=== PATIENT | female | born 1990 | race Asian ===

== ENCOUNTER 2020-09-24 07:30 | Inpatient (IN) | payer MEDICAID, OTHER ==
[2020-09-24] MEDS: Lactated Ringer's 1,000 ML IV SCH ×3 (08:10→18:06)
[2020-09-24] MEDS ORDERED: Ondansetron PF 4 MG/2 ML Vial IVP PRN ×2 (08:16→18:10)
[2020-09-24] MEDS ORDERED: Butorphanol Tartrate 1 MG/ML VIAL SLOW IVP PRN (08:16)
[2020-09-24] MEDS ORDERED: Ibuprofen 800 MG TAB PO PRN (08:16)
[2020-09-24] MEDS ORDERED: HYDROcodone/Acetaminophen 5/325 mg Tablet PO PRN ×2 (08:16)
[2020-09-24] MEDS ORDERED: hydrALAZINE 20 MG/ML VIAL SLOW IVP PRN (08:16)
[2020-09-24] MEDS ORDERED: Lidocaine 1% (PF) 30 ML VIAL SC PRN (08:16)
[2020-09-24] MEDS ORDERED: Promethazine HCl 25 MG/ML VIAL IM PRN ×2 (08:16→18:10)
[2020-09-24] MEDS ORDERED: Lactated Ringer's 1,000 ML IV SCH (08:16)
[2020-09-24] MEDS ORDERED: Penicillin G Potassium 5 MILL.UNITS VIAL ONE (08:46)
[2020-09-24 08:48] LABS: Hemoglobin 13.6 g/dL (12.0-16.0); Mean Corpuscular HGB CONC 33.1 g/dL (32.0-36.0); Mean Corpuscular Hemoglobin 31.2 pg (27.0-31.0); Mean Corpuscular Volume 94.2 fL (78.0-98.0); Mean Platelet Volume 7.6 fL (7.4-10.4); Platelet Count 248 thou/uL (130-400); RBC Distribution Width 12.4 % (11.5-14.5); Red Blood Cell (RBC) Count 4.36 mill/uL (4.20-5.40); White Blood Cell (WBC) Count 9.1 thou/uL (4.8-10.8)
[2020-09-24 08:51] VITALS: BMI 28.6
[2020-09-24] MEDS ORDERED: Penicillin G Potassium 5 MILL.UNITS in Sodium Chloride 0.9% 100 ML IVPB SCH (09:00)
[2020-09-24] MEDS ORDERED: NS w/ Oxytocin 30 units 500 ML IVPB PRN (09:04)
[2020-09-24 09:34] LABS: HBSAg Index 0.18 S/CO (0-0.99); Hep B Surf Ag Non-Reactive S/CO (NonReactive)
[2020-09-24 09:35] LABS: Syphilis Antibody Nonreactive (Nonreactive); Syphilis Antibody Index 0.04 S/CO (<1.00 Non-Reactive)
--- NOTE | 2020-09-24 11:50 | PDOC.LDHP ---
Labor and Delivery H&P Chief complaint: loss of fluid HPI: 30 y/o at 39 and 4/7 weeks with SROM. Clinic ultrasound on 09/06/20 showed weight of 6 pounds 10 oz. GBS positive on prior urine. Approximate 47 pound weight gain noted this . Cervix is relatively unfavorable today at 1cm, and is firm and rubbery. Due date: 09/27/20 Current complications: other (Excessive Weight Gain in ) Current medications: pre- vitamins Allergies/Adverse Reactions: Allergies Allergy/AdvReac Type Severity Reaction Status Date / Time No Known Allergies Allergy Verified 09/24/20 08:52 Social history: none - Physical Exam Vital signs reviewed and normal: yes General: NAD, breathing through contractions Heart: RRR Lungs: CTAB Abdomen: gravid Extremeties: no edema FHT: category 1 - Assessment L&D Assessment: term rupture in membranes - Plan Plan: admit to L&D, labor augmentation if indicated
[2020-09-24] MEDS ORDERED: Bupivacaine 0.25% HCL 30 ML VIAL ONE ×2 (12:18→23:31)
[2020-09-24] MEDS ORDERED: ePHEDrine 50 MG/ML VIAL ONE (12:18)
[2020-09-24] MEDS ORDERED: Lidocaine 2% PF 5 ML VIAL ONE (12:18)
[2020-09-24] MEDS: Penicillin G 2.5 MILL.units 2.5 MILL.UNITS in Premix Bag 1 BAG IVPB SCH ×3 (13:11→21:27)
[2020-09-24] MEDS ORDERED: Fentanyl 4 mcg/Bup 0.1% Cadd 100 ML ONE ×2 (14:52→21:25)
[2020-09-24] MEDS: ePHEDrine 50 MG/ML VIAL SLOW IVP PRN ×2 (16:26→17:24)
[2020-09-24] MEDS ORDERED: diphenhydrAMINE 50 MG/ML VIAL IVP PRN (18:10)
[2020-09-24] MEDS ORDERED: Naloxone HCl 0.4 mg/ml Vial IVP PRN ×2 (18:10)
[2020-09-24] MEDS ORDERED: Acetaminophen 325 MG TAB PO PRN (18:10)
[2020-09-24] MEDS ORDERED: Lactated Ringer's 500 ML IV PRN (18:10)
[2020-09-24] MEDS ORDERED: Communication Order-Pharmacy FS SCH (18:15)
[2020-09-24] MEDS ORDERED: Fentanyl 4 mcg/Bupivacaine 0.1% Cassette 100 ML EPIDURAL SCH (18:15)
[2020-09-24 18:22] LABS: SARS-CoV-2 PCR by NAA Not Detected (NotDetected)
[2020-09-24] MEDS ORDERED: Bicitra 30 ML UDCUP PO PRN (23:13)
[2020-09-24] MEDS ORDERED: Famotidine/PF 20 mg/2ml Vial SLOW IVP PRN (23:13)
[2020-09-24] MEDS ORDERED: Azithromycin 500 MG VIAL ONE ×2 (23:15)
--- NOTE | 2020-09-24 23:20 | PDOC.LDPN ---
Labor & Delivery Progress Note - Objective Dilation: 10 Effacement: 100% Station: 1+ -: Mother has pushed now for approximately 3 hours, and has been placed in every position possible to help rotate baby to a better OA position. At this point, I suspect persistent OP presentation. Per her nurseZora, minimal descent of the head is appreciated since the start of pushing. I recommended a c- section to the family, as the safest mode of delivery for the health of the fetus. I did offer the option of an attempted vacuum delivery, carefully going over the risks of attempted vacuum delivery. The patient and talked for about 10 minutes, and have chosen to proceed directly with . Anesthesia has been called and is now here at bedside.
[2020-09-24] MEDS ORDERED: CEFAZOLIN 2 GM in Premix Bag 1 BAG IVPB SCH (23:30)
[2020-09-24] MEDS ORDERED: Azithromycin 500 MG in Sodium Chloride 0.9% 250 ML 250 ML IVPB SCH (23:30)
[2020-09-24] MEDS ORDERED: Morphine PF 10 MG/10 ML VIAL ONE (23:30)
[2020-09-24] MEDS ORDERED: Oxytocin 10 UNITS/ML VIAL ONE (23:31)
[2020-09-24] MEDS ORDERED: Fentanyl 100 MCG/2 ML VIAL ONE (23:58)
[2020-09-25] MEDS ORDERED: Promethazine HCl 25 MG SUPP PR PRN (00:09)
[2020-09-25] MEDS ORDERED: L&D-Morphine 4 MG/ML VIAL SLOW IVP PRN (00:09)
[2020-09-25] MEDS ORDERED: Ondansetron HCl/PF 4 MG/2 ML Vial IVP PRN (00:09)
[2020-09-25] MEDS ORDERED: Ondansetron PF 4 MG/2 ML Vial IVP PRN ×2 (00:09→02:55)
[2020-09-25] MEDS ORDERED: Naloxone HCl 0.4 mg/ml Vial IVP PRN ×2 (00:09)
[2020-09-25] MEDS ORDERED: HYDROmorphone 2 MG/ML VIAL SLOW IVP PRN (00:09)
[2020-09-25] MEDS ORDERED: Naloxone HCl 0.4 mg/ml Vial IV PRN (00:09)
[2020-09-25] MEDS ORDERED: Meperidine HCl/PF 25 MG/ML VIAL SLOW IVP PRN (00:09)
[2020-09-25] MEDS ORDERED: Promethazine HCl 25 MG/ML VIAL IM PRN ×2 (00:09→02:55)
[2020-09-25] MEDS ORDERED: diphenhydrAMINE 50 MG/ML VIAL IVP PRN (00:09)
[2020-09-25] MEDS ORDERED: Ketorolac Tromethamine 30 MG/ML VIAL IVP SCH (00:15)
[2020-09-25] MEDS ORDERED: Communication Order-Pharmacy FS SCH (00:15)
[2020-09-25] MEDS ORDERED: Fentanyl 100 MCG/2 ML VIAL ONE (00:17)
[2020-09-25] MEDS ORDERED: Midazolam HCl 2 mg/2 ml Vial ONE (00:20)
[2020-09-25] MEDS ORDERED: Oxytocin 10 UNITS/ML VIAL ONE (00:35)
[2020-09-25] MEDS ORDERED: Ketorolac Tromethamine 30 MG/ML VIAL ONE (01:01)
[2020-09-25] MEDS: Ketorolac Tromethamine 30 MG/ML VIAL IVP PRN ×2 (01:07→14:05)
[2020-09-25] MEDS ORDERED: Bisacodyl 10 MG SUPP PR PRN (02:55)
[2020-09-25] MEDS ORDERED: Methylergonovine 0.2 MG/ML VIAL IM PRN (02:55)
[2020-09-25] MEDS ORDERED: diphenhydrAMINE 25 MG CAP PO PRN (02:55)
[2020-09-25] MEDS ORDERED: NS / Oxytocin 40 units/1000ml 1,000 ML IV SCH (02:55)
[2020-09-25] MEDS ORDERED: Lanolin Ointment 7 GM TUBE TOP PRN (02:55)
[2020-09-25] MEDS ORDERED: Simethicone Chewable 80 MG TAB PO PRN (02:55)
[2020-09-25] MEDS ORDERED: Misoprostol 200 MCG TAB PR PRN (02:55)
[2020-09-25] MEDS ORDERED: hydrALAZINE 20 MG/ML VIAL SLOW IVP PRN (02:55)
[2020-09-25] MEDS ORDERED: Zolpidem Tartrate 5 MG TAB PO PRN (02:55)
[2020-09-25] MEDS: Penicillin G 2.5 MILL.units 2.5 MILL.UNITS in Premix Bag 1 BAG IVPB SCH (03:51)
[2020-09-25 07:38] LABS: Hemoglobin 11.4 g/dL (12.0-16.0); Mean Corpuscular Hemoglobin 32.4 pg (27.0-31.0); Mean Corpuscular Volume 95.3 fL (78.0-98.0); Mean Platelet Volume 7.5 fL (7.4-10.4); Platelet Count 176 thou/uL (130-400); RBC Distribution Width 12.3 % (11.5-14.5); Red Blood Cell (RBC) Count 3.51 mill/uL (4.20-5.40); White Blood Cell (WBC) Count 14.6 thou/uL (4.8-10.8)
[2020-09-25] MEDS: Ibuprofen 800 MG TAB PO SCH ×3 (08:30→21:09)
[2020-09-25] MEDS ORDERED: Adacel (T-DAP) 0.5 ML SYRINGE IM ONE (09:00)
[2020-09-25] MEDS ORDERED: Varicella virus, LIVE 0.5 ML VIAL SC ONE (09:00)
[2020-09-25] MEDS ORDERED: Measles/Mumps/Rubella 10 MCG/0.5 ML VIAL SC ONE (09:00)
[2020-09-25] MEDS: Docusate Calcium (SURFAK) 240 MG CAP PO SCH ×2 (09:10→21:08)
[2020-09-25] MEDS: Prenatal Vitamin 1 TAB PO SCH (09:10)
[2020-09-25] MEDS ORDERED: FLU VACC QS2020-21(6MOS UP)/PF 60 MCG/0.5 ML SYRINGE IM ONE (09:15)
[2020-09-25] MEDS ORDERED: HYDROcodone/Acetaminophen 5/325 mg Tablet PO PRN ×2 (12:15)
[2020-09-26] MEDS: Ibuprofen 800 MG TAB PO SCH ×3 (06:27→20:25)
[2020-09-26] MEDS: Docusate Calcium (SURFAK) 240 MG CAP PO SCH ×2 (09:05→20:25)
[2020-09-26] MEDS: Prenatal Vitamin 1 TAB PO SCH (09:05)
--- NOTE | 2020-09-26 18:56 | PDOC.PP ---
Post Progress Note Post Day #: 1 PO intake tolerated: yes Flatus: yes Ambulation: yes Vital Signs (12 hours) Temp Pulse Resp BP Pulse Ox 09/26/20 12:02 97.8 F 94 18 114/65 09/26/20 08:55 98.1 F 81 18 114/68 98 Weight Weight 182 lb 15.739 oz - Physical Examination General: NAD Cardiovascular: no m/r/g, RRR Respiratory: clear to auscultation bilaterally, non-labored breathing Abdominal: + bowel sounds, lochia, no distention Extremities: negative homans (B) Skin: CS incision dry & intact, no rash Neurological: no gross focal deficits Psychiatric: A&Ox3, normal affect Result Diagrams: 09/25/20 07:20 Additional Labs: Post Labs Hep Bs Antigen Non-Reactive S/CO (NonReactive) 09/24/20 08:19 Blood Type B POSITIVE 09/24/20 09:15
[2020-09-27] MEDS: Ibuprofen 800 MG TAB PO SCH ×3 (05:23→22:23)
--- NOTE | 2020-09-27 06:53 | OP ---
DATE OF PROCEDURE: 09/25/2020 TIME: 0000 Central Standard time. PREOPERATIVE DIAGNOSIS: Intrauterine at 39 weeks and 5 days with spontaneous rupture of membranes at term, failure to descend and persistent occiput posterior presentation. POSTOPERATIVE DIAGNOSIS: Intrauterine at 39 weeks and 5 days with spontaneous rupture of membranes at term, failure to descend and persistent occiput posterior presentation. PROCEDURE PERFORMED: Primary low transverse section. FINDINGS: Viable male infant weighing 3676 g or 8 pounds 2 ounces, Apgars of 9 and 9. QUANTITATIVE BLOOD LOSS: 845 mL. COMPLICATIONS: None. DESCRIPTION OF PROCEDURE: The patient was consented and taken back to the operating room where spinal anesthesia was found to be adequate. She was then prepped and draped in the normal sterile fashion. A timeout was performed by the entire operative team. The incision was then marked with a marking pen tested using sharp pickups. An incision was then made with a scalpel. The incision was carried through the adipose tissue down to the underlying rectus fascia using both sharp dissection as well as cautery. Once the fascia was identified, it was incised in the midline and then the fascial incision was carried through in both lateral directions using sharp as well as cautery dissection techniques. Next, the superior aspect of the rectus fascia was grasped with 2 Lei clamps, which was tented up and the rectus muscles were dissected off using blunt dissection as well as cautery dissection. Similarly, the inferior aspect of the fascial incision was grasped with 2 Lei clamps, tented up and the rectus muscles were dissected off bluntly as well as sharply. Next, the rectus muscles were in the midline and the peritoneum identified. The peritoneum was then carefully grasped with 2 hemostats and entered sharply. The peritoneal incision was extended superiorly and inferiorly and bladder blade was placed in the lower abdomen. At this point, the uterus was identified and the bladder flap was then developed using pickups with teeth as well as Metzenbaum scissors in both lateral directions. The bladder flap was then dissected downwards using the process line operator's finger as well as Metzenbaum scissors. The bladder blade was replaced. The lower uterine segment was then identified and entered sharply using a clean scalpel. The uterine incision was then dissected downwards until thin layer of muscle remained and this was entered bluntly using a hemostat to avoid any injury to the baby. The uterine incision was then stretched using two fingers in both lateral directions. An amniotomy was performed artificially using a hemostat and the baby was delivered using fundal pressure in a gentle fashion. Once out, the baby's mouth and nose were bulb suctioned, cord clamped and cut, and the baby was handed to waiting attendants. Next, the uterus was exteriorized, cleared of all clots and debris and the uterine incision was repaired with #1 Monocryl in a running locking fashion. A 2nd suture of the same type was used to obtain complete hemostasis at the uterine incision. The bladder flap was reapproximated using 3-0 Monocryl. Next, patient's left and right adnexa were inspected and appeared to be within normal limits. The posterior cul-de-sac was blotted dry and hemostasis assured. One more look at the uterine incision demonstrated hemostasis. Next, the uterus was replaced back within the abdomen. The peritoneum was reapproximated using 2-0 Monocryl without difficulty. The rectus muscles were then allowed to come back together and 0 chromic was used to aid in reapproximation of the muscle as necessary. The rectus fascia was then reapproximated in a running fashion using 0 Vicryl suture. The adipose tissue was then examined and appeared to be well approximated without any obvious separations. Finally, the skin was reapproximated with 3-0 Monocryl on a Tomy needle without difficulty and Dermabond adhesive was applied to the skin. Once the glue was dry, the drapes were removed and the patient was transferred to an ambulatory bed where she was taken to recovery awake and in stable condition. Sponge, lap, and needle counts were correct x3. Job ID: [id number]
[2020-09-27] MEDS: Docusate Calcium (SURFAK) 240 MG CAP PO SCH ×2 (08:23→22:42)
[2020-09-27] MEDS: Prenatal Vitamin 1 TAB PO SCH (08:23)
[2020-09-28] MEDS: Ibuprofen 800 MG TAB PO SCH ×2 (06:21→09:21)
[2020-09-28 08:01] VITALS: BP 120/75; TEMP 98.1
[2020-09-28] MEDS: Docusate Calcium (SURFAK) 240 MG CAP PO SCH (09:17)
[2020-09-28] MEDS: Prenatal Vitamin 1 TAB PO SCH (09:17)
== END 2020-09-28 16:02 | disposition home or self-care (01) | DRG 788 ==
LOC: L&D/OP 07:30 → L&D 08:16 → 3SW 09-25 03:45 → 3SE 09-25 22:19
PROVIDERS: ADMIT Obstetrics & Gynecology; ATTEND Obstetrics & Gynecology
PROC: 10D00Z1 Extraction of Products of Conception, Low, Open Approach (ICD-10-PCS; principal; 2020-09-25)
DX: O62.0 Primary inadequate contractions (principal); Z3A.39 39 weeks gestation of pregnancy; Z37.0 Single live birth; Z20.822 Contact with and (suspected) exposure to COVID-19; O99.824 Streptococcus B carrier state complicating childbirth; O32.8XX0 Maternal care for other malpresentation of fetus, not applicable or unspecified
CPT/HCPCS: 36415; 51702; 85027; 86780; 86850; 86900; 86901; 87340; 87635; 99285; J0456; J0690; J1885; J2001; J2250; J2270; J2540; J2590; J3010; J3490; J7050; S0020; U0003; U0005